=== PATIENT | female | born 1945 | race Caucasian/White ===

== ENCOUNTER 2019-10-10 23:02 | Emergency (ER) | payer MEDICARE, OTHER ==
[~2019-10-10] VITALS: Ht 157.5 cm; Wt 57.1 kg
[~2019-10-10 23:02] MED LIST: BETAMETHASONE V15 G1 TP; CITRACAL-VIT D1 EACH PO; CLONIDINE HCL0.1 MG PO; DEXAMETHASONE4 MG PO; DILTIAZEM HCL; FLEXERIL5 MG PO; HYDROCHLOROTH12.5 M1 PO; HYDROCODON-ACE1 EA10 PO; IBUPROFEN; IBUPROFEN600 MG PO; LISINOPRIL20 MG PO; MIRAPEX0.125 MG PO; PRAMIPEXOLE D0.25 MG PO; PROAIR HFA8.5 GM IH; SUDOGEST60 MG PO; VITAMIN D-32000 UNIT PO
--- OUTSIDE RECORDS SUMMARY | 2019-10-10 23:06 | XMS ---
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 ETom VISIT COUNT (12 MO.) 1 [facility]A [facility] TOTAL 1 NOTE: Visits indicate total known visits. ED/UCC VISIT TRACKING (12 MO.) 10/10/2019 23:03 [facility] [place] TYPE: Emergency COMPLAINT: - BLOOD PRESSURE PROBLEM INPATIENT VISIT TRACKING (12 MO.) No inpatient visits to display in this time frame [email or web address]
[2019-10-10] MEDS ORDERED: HYDROCODON-ACE1 EA11 PO (23:57)
[2019-10-12] MEDS ORDERED: LORCET HD 10-31 EACH PO (11:36)
[2019-10-12] MEDS ORDERED: IBUPROFEN800 MG PO (11:40)
[2019-10-12] MEDS ORDERED: CAFFEINE200 MG PO (11:56)
[2019-10-12] MEDS ORDERED: DILTIAZEM 24HR120 MG PO (11:58)
[2019-10-12] MEDS ORDERED: NEURONTIN300 MG PO (12:02)
[2019-10-12] MEDS ORDERED: ALKA-SELTZER H1 EAC1 PO (12:06)
[2019-10-12] MEDS ORDERED: CEPHALEXIN500 MG PO (16:48)
[2019-10-12] MEDS ORDERED: FAMOTIDINE40 MG PO (16:49)
== END 2019-10-11 01:42 | disposition home or self-care (01) ==
LOC: ED 23:02
DX: I10 Essential (primary) hypertension (principal); Z79.899 Other long term (current) drug therapy; Z79.891 Long term (current) use of opiate analgesic
CPT/HCPCS: 99283

== ENCOUNTER 2019-10-11 15:23 | Observation (INO) | payer MEDICARE, OTHER ==
[~2019-10-11] VITALS: Ht 157.5 cm; Wt 52.6 kg
[~2019-10-11 15:23] MED LIST changes: +HYDROCODON-ACE1 EA11 PO
--- OUTSIDE RECORDS SUMMARY | 2019-10-11 15:26 | XMS ---
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 ETom VISIT COUNT (12 MO.) 2 [facility] TOTAL 2 NOTE: Visits indicate total known visits. ED/UCC VISIT TRACKING (12 MO.) 10/11/2019 15:24 [facility] [place] TYPE: Emergency COMPLAINT: - BLOOD PRESSURE PROBLEM 10/10/2019 23:03 [facility]UED[facility] [place] TYPE: Emergency COMPLAINT: - BLOOD PRESSURE PROBLEM INPATIENT VISIT TRACKING (12 MO.) No inpatient visits to display in this time frame [email or web address]
--- NOTE | 2019-10-11 20:25 | NUR ---
PT ARRIVED TO FLOOR WITH OUTSIDE ENERGY SALES REPRESENTATIVES, TRANSFERED TO BED BEFORE COMMERCIAL ESCROW ASSISTANT PRESENT. PT UP TO USE THE BATHROOM WITH COMMERCIAL ESCROW ASSISTANT ASSISTANCE. REMOVED PANTS AND UNDERPANTS, ALL BELONGINGS PLACE IN THE CLOSET. PT DENIES NEEDING ANY BELONGINGS TO BE PLACED IN SAFE. 1 DOLLAR AND SOME CHANGE NOTED IN PANTS POCKET. PT VERY DROWSY DURING ADMISSION PROCESS. PT EDUCATION REGARDING POC FOR THIS SHIFT. ORIENTED TO ROOM. INSTRUCTED TO USE CALL LIGHT FOR NEEDS. PT STATES UNDERSTANDING. BEDALARM PLACED.
--- NOTE | 2019-10-12 02:00 | NUR ---
pt using bsc to void. very sleepy, uses call light well. iv fusing well with replacement kcl. pt denies pain meds at this time.
--- NOTE | 2019-10-12 03:03 | NUR ---
CALL LIGHT ANSWERED. 1 PA TO BEDSIDE COMMODE AND BACK TO BED. ICE WATER REFILLED. PATIENT ASKED IF SHE CAN USE HER INHALER WHICH SHE BROUGHT IN IN HER PURSE. PRIMARY RN NOTIFIED.
--- NOTE | 2019-10-12 05:12 | NUR ---
pt used call light appropriatly, up to void bsc, sob with exertion - recovers quickly - 94% ra. void 250 ml and back to bed with call light.
--- NOTE | 2019-10-12 07:58 | NUR ---
REPORT RECEIVED. PT SITTING IN BED ORDERING BREAKFAST. REPORTS FEELING MUCH BETTER THIS MORNING. CALL LIGHT IN REACH. DENIES NEEDS.
--- NOTE | 2019-10-12 10:00 | NUR ---
ASSESSMENT COMPLETED. STA TO BATHROOM. PT VOIDED, SBA TO CHAIR. DENEIS PAIN. LUNGS CLEAR. HEART SOUND REGULAR. MAG STARTED. FLUIDS INFUSING WNL. CALL LIGHT IN REACH. DENEIS FURTHER NEEDS.
--- NOTE | 2019-10-12 10:30 | NUR ---
PATIENT IN BED RESTING WITH EYES CLOSED. FRESH WATER GIVEN. CALL LIGHT IN REACH. NO FURTHER NEEDS AT THIS TIME.
[2019-10-12] MEDS ORDERED: LORCET HD 10-31 EACH PO (11:36)
[2019-10-12] MEDS ORDERED: IBUPROFEN800 MG PO (11:40)
[2019-10-12] MEDS ORDERED: CAFFEINE200 MG PO (11:56)
[2019-10-12] MEDS ORDERED: DILTIAZEM 24HR120 MG PO (11:58)
[2019-10-12] MEDS ORDERED: NEURONTIN300 MG PO (12:02)
[2019-10-12] MEDS ORDERED: ALKA-SELTZER H1 EAC1 PO (12:06)
--- NOTE | 2019-10-12 12:32 | NUR ---
MED REC COMPLETED USING REFILL HISTORY. NOTE: MISC TABLETS AND CAPSULES WERE FOUND LOOSE IN PATIENT'S PURSE. MOST HAVE BEEN IDENTIFIED AND PLACED ON THE MED REC FORM.
--- NOTE | 2019-10-12 15:15 | NUR ---
PT REPORTING SOB WITH ACTIVITY. REQUESTING NEB TREATMENT. ASSESSMENT DONE. NO CRACKLES, UP LOBES SOUND TIGHT. OXYGEN 97% ON RA. RT CALLED FOR PRN NON URGENT BREATHING TREATMENT.
[2019-10-12] MEDS ORDERED: CEPHALEXIN500 MG PO (16:48)
[2019-10-12] MEDS ORDERED: FAMOTIDINE40 MG PO (16:49)
--- NOTE | 2019-10-12 18:01 | NUR ---
DISCHARGE INSTRUCTIONS PROVIDED. QUESTIONS ANSWERED. VITALS STABLE. IV DC'D, CATH INTACT.
== END 2019-10-12 17:53 | disposition home or self-care (01) ==
LOC: ED 15:23 → MS 15:25
PROVIDERS: ADMIT Internal Medicine
DX: E83.52 Hypercalcemia (principal); E87.6 Hypokalemia; E83.42 Hypomagnesemia; N39.0 Urinary tract infection, site not specified; K21.9 Gastro-esophageal reflux disease without esophagitis; I10 Essential (primary) hypertension; G25.81 Restless legs syndrome; M54.9 Dorsalgia, unspecified; G89.29 Other chronic pain; Z87.891 Personal history of nicotine dependence; Z98.890 Other specified postprocedural states; Z79.899 Other long term (current) drug therapy
CPT/HCPCS: 36415; 80048; 80053; 80069; 81001; 82306; 82310; 83735; 83970; 84443; 85025; 87077; 87088; 87186; 96361; 96365; 96366; 96367; 96372; 99284-25; G0378; J0696; J1650; J3475; J3480; J7040; J7121